=== PATIENT | female | born 1955 | race African-American/Black ===

== ENCOUNTER 2018-07-06 20:52 | Emergency (ER) | payer OTHER ==
[~2018-07-06] VITALS: Ht 162.6 cm; Wt 54.4 kg
--- NOTE | ~2018-07-06 | EKG ---
[place] [address] [email or web address] [place] [address] ELECTROCARDIOGRAM REPORT Name: ANA JENNINGS [id number] Admission: 07/06/18 Attend Phys: Discharge: 07/07/18 Date of : 53 Report #: [id number] THIS REPORT FOR: //name// [facility] ED Test Date: 2018-07-06 Test Time: 21:02:27 Pat Name: ANA JENNINGS Department: Room: Gender: F Tool Design Checker: juan : 1955 Requested By: Era Price Order Number: [id number] MD: London Correa Measurements Intervals [place] Rate: 86 P: 58 SD: 141 QRS: 44 QRSD: 89 T: 55 QT: 376 QTc: 450 Interpretive Statements Sinus rhythm Abnormal R-wave progression, early transition Baseline wander in lead(s) V6 No previous ECG available for comparison Electronically Signed On 07-07-2018 8:46:33 WRAPPING MACHINE TENDER by London Correa [email or web address] <ELECTRONICALLY SIGNED> By: London Correa MD, [facility] 07/07/18 0846 01 01 London Correa MD, FACC /EPI
[2018-07-06 21:38] LABS: HEMATOCRIT 44.1 % (37.0-47.0); MCH 41.3 pg (26.0-34.0); MCV 121.5 fL (80.0-100.0); RBC 3.63 mil/uL (4.20-5.00)
[2018-07-06 21:48] LABS: ANION GAP 6 mmol/L (7-16); BUN 20 mg/dL (7-18); CALCIUM 9.8 mg/dL (8.5-10.1); CHLORIDE 104 mmol/L (98-107); CO2 27 mmol/L (21-32); CREATININE 1.2 mg/dL (0.6-1.0); GLUCOSE 111 mg/dL (74-106); POTASSIUM 4.5 mmol/L (3.5-5.1); SODIUM 137 mmol/L (136-145)
[2018-07-06 21:53] LABS: URINE BILIRUBIN NEGATIVE (Negative); URINE BLOOD NEGATIVE (Negative); URINE CLARITY CLEAR; URINE COLOR YELLOW; URINE GLUCOSE-RANDOM* NEGATIVE (Negative); URINE KETONES NEGATIVE (Negative); URINE LEUKOCYTES-REFLEX NEGATIVE (Negative); URINE NITRITE-REFLEX NEGATIVE (Negative); URINE PROTEIN (DIPSTICK) NEGATIVE (Negative); URINE UROBILINOGEN 0.2 E.U./dl (0.2-1.0)
[2018-07-06 21:57] LABS: ALBUMIN 3.7 g/dL (3.4-5.0); LIPASE 172 U/L (73-393); SGOT 22 U/L (15-37); SGPT 22 U/L (30-65); TOTAL BILIRUBIN 0.2 mg/dL (<0.1-1.0); TOTAL PROTEIN 8.8 g/dL (6.4-8.2); TROPONIN-I <0.06 ng/mL (<0.06)
[2018-07-07 01:41] VITALS: BP 124/58
== END 2018-07-07 01:41 | disposition home or self-care (01) ==
LOC: ER 20:52
PROVIDERS: Student in an Organized Health Care Education/Training Program
DX: R07.89 Other chest pain (principal); F03.90 Unspecified dementia, unspecified severity, without behavioral disturbance, psychotic disturbance, mood disturbance, and anxiety; F17.210 Nicotine dependence, cigarettes, uncomplicated

== ENCOUNTER 2019-09-20 22:08 | Inpatient (IN) | payer OTHER ==
[~2019-09-20] VITALS: Ht 165.1 cm; Wt 74.4 kg
--- NOTE | ~2019-09-20 | EKG ---
[facility] [place] [address] [address] ELECTROCARDIOGRAM REPORT Name: ANA JENNINGS Room #: [facility]#: [id number] Admission: 09/20/19 Attend Phys: Discharge: Date of : 53 Report #: [id number] THIS REPORT FOR: cc: Lexie Lawson,Holly Solitario MD ~ THIS REPORT FOR: //name// [facility] ED Test Date: 2019-09-20 Test Time: 23:05:11 Pat Name: ANA JENNINGS Department: Room: Gender: F Minor League Baseball Player: GEORGES : 1955 Requested By: Bita Davila Order Number: [id number] MD: Measurements Intervals [place] Rate: 77 P: 52 NJ: 151 QRS: 29 QRSD: 62 T: 73 QT: 495 QTc: 561 Interpretive Statements Sinus rhythm Abnormal R-wave progression, early transition Borderline T abnormalities, anterior leads Prolonged QT interval Compared to ECG 07/06/2018 21:02:27 T-wave abnormality now present Prolonged QT interval now present [email or web address] By: [id number] Epiphany Epiphany, /EPI
[2019-09-20 22:57] VITALS: BP 122/104
[2019-09-20 23:01] LABS: ANION GAP 9 mmol/L (7-16); BUN 14 mg/dL (7-18); CALCIUM 8.9 mg/dL (8.5-10.1); CHLORIDE 104 mmol/L (98-107); CO2 28 mmol/L (21-32); CREATININE 1.3 mg/dL (0.6-1.0); GLUCOSE 124 mg/dL (74-106); POTASSIUM 3.7 mmol/L (3.5-5.1); SODIUM 141 mmol/L (136-145)
[2019-09-20 23:10] LABS: DIRECT BILIRUBIN < 0.1 mg/dL (<0.1-0.2); SGOT 21 U/L (15-37); SGPT 17 U/L (30-65); TOTAL BILIRUBIN 0.2 mg/dL (<0.1-1.0); TOTAL PROTEIN 8.5 g/dL (6.4-8.2); TROPONIN-I <0.06 ng/mL (<0.06)
[2019-09-21 00:24] LABS: ABSOLUTE NEUTROPHILS 7.1 thou/uL (1.4-8.2); BASOPHILS 0.6 % (0.0-2.0); EOSINOPHILS 3.1 % (0.0-3.0); HEMATOCRIT 34.4 % (37.0-47.0); HEMOGLOBIN 10.8 gm/dL (12.0-15.0); LYMPHOCYTES 18.3 % (24.0-44.0); MCH 28.1 pg (26.0-34.0); MCHC 31.5 g/dL (28.0-37.0); MCV 89.1 fL (80.0-100.0); MONOCYTES 11.8 % (1.0-8.0); PLATELET COUNT 327 thou/uL (150-400); POLYS 66.2 % (36.0-66.0); RBC 3.86 mil/uL (4.20-5.00); RDW 20.6 % (10.5-14.5); WBC 10.7 thou/uL (4.0-11.0)
[2019-09-21] MEDS ORDERED: NON-ASPIRIN PA325 MG PO (01:28)
[2019-09-21] MEDS ORDERED: FOSAMAX 70 MG T70 MG PO (01:29)
[2019-09-21] MEDS ORDERED: NORVASC 2.5 MG2.5 M1 PO (01:29)
[2019-09-21] MEDS ORDERED: LAC-HYDRIN FIV226 GM TOP (01:30)
[2019-09-21] MEDS ORDERED: DOCUSATE SODIU100 MG PO (01:31)
[2019-09-21] MEDS ORDERED: NEXIUM 40 MG CA40 M1 PO (01:32)
[2019-09-21 01:33] VITALS: BP 106/51
[2019-09-21] MEDS ORDERED: FAMOTIDINE 20 M20 MG (01:42)
[2019-09-21 02:16] VITALS: BP 109/56
--- NOTE | 2019-09-21 03:19 | NUR ---
ADMISSION ASSESSMENT COMPLETED.SISTER ASSISTED A LITTLE BIT BEFORE LEAVING. PT IS ALERT TO SELF. THINKS SHE IS IN [place]. SHE REMEMBERS ITS SEPTEMBER WITH A FEW CUES.PT IS ON /NC TO KEEP SATS ABOVE 92%. PT HAS A CONGESTED COUGH. NO SPUTUM NOTED.AFEBRILE. FALL PREC IN PLACE.ORIENTED TO SATFF AND USE OF CALL LIGHT.
[2019-09-21 09:15] VITALS: BP 110/65
--- NOTE | 2019-09-21 11:35 | 2DMMODE ---
[facility] [place] [address] 2 D/M-MODE ECHOCARDIOGRAM Name: ANA JENNINGS Room #: 441-P ADM IN M.R.#: [id number] Admission: 09/21/19 Attend Phys: Jaiden Sauceda MD Discharge: Date of : 53 Report #: [id number] THIS REPORT FOR: cc: Lexie Lawson,Lexie Del [place],Ruben Ibarra MD ~ THIS REPORT FOR: //name// APPROVED REPORT Study performed: 09/21/2019 09:42:07 EXAM: Comprehensive 2D, Doppler, and color-flow Echocardiogram Patient Location: Bedside Room #: 441 Status: routine BSA: 1.98 HR: 73 bpm BP: 109/56 mmHg Rhythm: NSR Other Information Study Quality: Adequate Indications Dyspnea 2D Dimensions IVC: 16.00 mm Volumes Left Atrial Volume (Systole) Single Plane 4CH: 32.73 mL Single Plane 2CH: 44.38 mL LA ESV Index: 21.00 mL/m2 Aortic Valve AoV Peak Jareth.: 1.38 m/s AO Peak Gr.: 7.57 mmHg LVOT Max P.13 mmHg LVOT Max V: 1.13 m/s Mitral Valve E/A Ratio: 1.1 MV Decel. Time: 249.41 ms MV E Max Jareth.: 0.87 m/s [facility] [address] [address] 2 D/M-MODE ECHOCARDIOGRAM Name: ANA JENNINGS Room #: 441-P ADM IN M.R.#: [id number] Admission: 09/21/19 Attend Phys: Jaiden Sauceda MD Discharge: Date of : 53 Report #: [id number] MV A Jareth.: 0.79 m/s MV PHT: 72.33 ms IVRT: 106.11 ms Pulmonary Valve PV Peak Jareth.: 1.15 m/s PV Peak Gr.: 5.30 mmHg Pulmonary Vein P Vein S: 0.47 m/s P Vein A: 0.23 m/s P Vein D: 0.31 m/s P Vein A Dur.: 96.9 msec P Vein S/D Ratio: 1.52 Tricuspid Valve TR Peak Jareth.: 2.68 m/s TR Peak Gr.: 28.83 mmHg PA Pressure: 34.00 mmHg Left Ventricle The left ventricle is normal size. There is normal LV segmental wall motion. There is normal left ventricular wall thickness. The left ventricular systolic function is normal. The left ventricular ejection fraction is within the normal range. LVEF is 60-65%. The left ventricular diastolic function is normal. Right Ventricle The right ventricle is normal size. The right ventricular systolic function is normal. Atria The left atrium size is normal. The right atrium size is normal. Aortic Valve The aortic valve is normal in structure. No aortic regurgitation is present. There is no aortic valvular stenosis. Mitral Valve The mitral valve is normal in structure. There is no mitral valve regurgitation noted. No evidence of mitral valve stenosis. Tricuspid Valve The tricuspid valve is normal in structure. There is mild tricuspid regurgitation. Estimated PAP 34 mmHg. There is mild pulmonary hypertension. Pulmonic Valve [facility] [address] [place] [address] 2 D/M-MODE ECHOCARDIOGRAM Name: ANA JENNINGS Room #: 441-P ADM IN M.R.#: [id number] Admission: 09/21/19 Attend Phys: Jaiden Sauceda MD Discharge: Date of : 53 Report #: [id number] The pulmonary valve is normal in structure. There is no pulmonic valvular regurgitation. Great Vessels The aortic root is normal in size. IVC is normal in size and collapses >50% with inspiration. Pericardium There is no pericardial effusion. <Conclusion> The left ventricle is normal size. LVEF is 60-65%. The aortic valve is normal in structure. The mitral valve is normal in structure. The tricuspid valve is normal in structure. There is mild tricuspid regurgitation. Estimated PAP 34 mmHg. There is mild pulmonary hypertension. The pulmonary valve is normal in structure. There is no pericardial effusion. <ELECTRONICALLY SIGNED> By: Ruben Fernandez MD 09/21/19 1134 1134 1134 Ruben Fernandez MD /INF
[2019-09-21 16:12] VITALS: BP 142/72
[2019-09-21 16:50] LABS: BE(vivo) 0.3 mmol/L (-2 to +3); HCO3 25.4 mmol/L (22.0-26.0); PCO2 43.2 mmHg (35.0-45.0); PO2 65.9 mmHg (80.0-100.0); pH 7.388 (7.360-7.450); sO2 92.8 % (92.0-98.0)
[2019-09-21 19:00] VITALS: BP 139/70
--- NOTE | 2019-09-21 20:13 | NUR ---
PT RECEIVED CT SCAN THIS SHIFT, REMAIN INCONTINENT OF URINE, UNABLE TO GET URINE SAMPLE THIS SHIFT, PASSED INFORMATION TO NIGHT NURSE IN REPORT. PT HAS NOT HAD BOWEL MOVEMENT TO COLLECT SPECIMEN, SPEEDBOAT DRIVER NURSE AWARE OF NEED FOR SAMPLE. PT NOT IMPULSIVE, ASSISTING WITH TURNING. FALL PRECAUTIONS IN PLACE. REMAINS ON ROOM AIR, NO SIGNS OF RESP DISTRESS NOTED, PT DENIES ANY FEELINGS OF DISTRESS.
[2019-09-22 03:10] VITALS: BP 116/64
[2019-09-22 06:13] LABS: BASOPHILS 0.2 % (0.0-2.0); HEMATOCRIT 32.7 % (37.0-47.0); HEMOGLOBIN 10.3 gm/dL (12.0-15.0); MCH 28.3 pg (26.0-34.0); MCHC 31.5 g/dL (28.0-37.0); MCV 89.9 fL (80.0-100.0); MONOCYTES 2.5 % (1.0-8.0); PLATELET COUNT 334 thou/uL (150-400); POLYS 86.3 % (36.0-66.0); RBC 3.63 mil/uL (4.20-5.00); RDW 20.1 % (10.5-14.5); WBC 10.4 thou/uL (4.0-11.0)
--- NOTE | 2019-09-22 06:46 | NUR ---
PT ALERT AND ORIENTED TO PERSON AND TIME, REDIRECTED PT IN REGARDS TO PLACE, FORGETFUL IN REGARDS TO SITUATION. PT DENIES PAIN AND SOB. PT ABLE TO ASSIST WITH TURNS. ENCOURAGED FREQUENT REPOSITIONING, PT REFUSED AFTER X1 POSITION CHANGES. PT NOTED TO HAVE LABILE MOOD. PT TOLERATING PO INTAKE WITHOUT ISSUE. ENCOURAGED PT TO NOTIFY STAFF FOR ALL NEEDS. CALL LIGHT WITHIN REACH, BED ALARM ON, BED IN LOWEST POSITION. WILL CONTINUE TO MONITOR.
[2019-09-22 07:20] LABS: CALCIUM 9.1 mg/dL (8.5-10.1); CREATININE 0.9 mg/dL (0.6-1.0); POTASSIUM 3.6 mmol/L (3.5-5.1)
[2019-09-22 08:08] VITALS: BP 102/55
[2019-09-22 16:47] VITALS: BP 120/75
--- NOTE | 2019-09-22 17:49 | NUR ---
ASSUMED CARE OF THE PT AT 0700. PT IS ALERT AND AWAKE. PT ON 2.0 O2 AND REFUSES TO KEEP IN NASAL CANNULA. PT PULLED OUT IV FROM R FOREARM. FLU SWABS SENT TO LAB. PT IS VERY CONFUSED TO WHERE SHE IS. LUNGS ARE COARSE. PULSES ARE STRONG. BED IN LOWEST POSITION, CALL LIGHT IS WITHIN REACH AND FALL PRECAUTIONS ARE IN PLACE. WILL CONTINUE TO MONITOR THE PT.
[2019-09-22 19:18] VITALS: BP 124/59
[2019-09-23 03:47] VITALS: BP 127/69
--- NOTE | 2019-09-23 04:27 | NUR ---
1900 ASSUMED CARE OF PT AFTER BEDSIDE REPORT FROM MICHELLE 1999 ASSESSMENT COMPLETED SEE ASSESSMENT. PT RESP UNLABORED, O2 SATS 94-95% ON ROOM AIR, PT WILL NOT LEAVE NC ON. IV STARTED TO GIVE ABX AFTER CONSENT FROM PT, AFTER ABX, PT DC'D IV ON HER OWN, CATHETER INTACT AND BLEEDING STOPPED. FALL PRECAUTIONS IN PLACE. PT IS COOPERATIVE AND PLEASANT. PT WITH NO COMPLAINTS OF PAIN OR DISCOMFORT.
[2019-09-23 05:58] VITALS: BP 144/66
[2019-09-23 06:15] LABS: HEMATOCRIT 34.2 % (37.0-47.0); HEMOGLOBIN 10.6 gm/dL (12.0-15.0); MCH 27.6 pg (26.0-34.0); MCHC 31.1 g/dL (28.0-37.0); MCV 88.7 fL (80.0-100.0); RBC 3.85 mil/uL (4.20-5.00); RDW 20.5 % (10.5-14.5)
[2019-09-23 06:43] LABS: CALCIUM 9.2 mg/dL (8.5-10.1); CREATININE 0.9 mg/dL (0.6-1.0); POTASSIUM 3.7 mmol/L (3.5-5.1)
[2019-09-23 07:25] VITALS: BP 138/66
--- NOTE | 2019-09-23 09:08 | NUR ---
PT ADMITTED 09/21/19 LATE ENTRY: PT ADMITTED RELATED TO HYPOXIA. CM REVIEWED CHART AND SPOKE WITH CARE TEAM. CM ATTEMPTED TO MEET WITH PT AT BEDSIDE DAY OF ADMIT BUT PT WAS SLEEPING AND DIDN'T ROUSE. CM CALLED PT'S SISTER SHE INDICATED THAT PT RESIDES AT [facility]. SHE INDICATED THAT PT USED A WC AND FWW TO ASSIST WITH MOBILITY CANDY DEPOSITING MACHINE OPERATOR. SISTER INDICATED THAT PT COULD ASSIST WITH TRANSFERS CANDY DEPOSITING MACHINE OPERATOR. SHE INDICATED THAT THEY ANTICPATE PT RETURNING TO [facility] MEDICALLY ST[facility]. CLINICAL UPDATE SENT TO [facility]. CM TO FOLLOW INDICATED WITH DC PLANNING.
--- NOTE | 2019-09-23 12:38 | NUR ---
ASSUMED CARE OF THE PT AT 0700. PT PULLED OUT IV YESTERDAY AND EARLY IN THE AM WITH NOC NURSE. ANOTHER IV INSERTED BY NOC NURSE IN R FOREARM, DRY AND INTACT WITH PROTECTIVE WRAP APPLIED. NEG FOR FLU. PT UP IN BED WITH BED ALARM ON, ALERT AND AWAKE. NO C/O OF PAIN. LUNGS ARE COARSE, PER NOTES PT HAS HX OF PULMONARY EDEMA, WITH LOOSE COUGH. NO BM FOR OCCULT BLOOD CULTURE. PER NOTES OK TO MINIMIZE SLEEP INTERRUPTIONS BETWEEN HOURS OF 10PM AND 6AM IF VS ARE NORMAL. FALL PRECAUTIONS IN PLACE AND BED IN LOWEST POSITION. PT REFUSED SCD'S. WILL CONTINUE TO MONITOR THE PT.
[2019-09-23] MEDS ORDERED: ZITHROMAX TRI-500 MG PO (14:04)
[2019-09-23] MEDS ORDERED: MEDROL DOSPAK21 TA1 PO (14:04)
--- NOTE | 2019-09-23 15:56 | NUR ---
DISCHARGE ORDERS COMPLETED. PATIENT DISCHARGING BACK TO [facility]. PATIENT CLINICALS, DISCHARGE ORDERS, DISCHARGE SUMMARY, FACESHEET AND RADIOLOGY REPORTS FAXED TO [facility], [facility] VERIFIED RECEIVED. [facility] TO ARRANGE PATIENT WHEELCHAIR TRANSPORTATION BACK [place] [facility]. CHART COPY COMPLETED PER WATER RESOURCE AGENT. UNIT SW TO NOTIFY FAMILY. CONTACT NUMBER FOR REPORT PROVIDED. [facility] CON[facility] NUM[facility] [phone].
[2019-09-23 16:53] VITALS: BP 121/58
--- NOTE | 2019-09-23 17:00 | NUR ---
CARE TEAM INDICATED THAT PT IS MEDICALLY STABLE TO DC BACK TO [facility] THIS DAY. CHART COPY ORDERED. WHEELCHAIR VAN TRANSPORT TO BE ARRANGED. ORDERS HAVE BEEN FAXED. NURSE GIVEN NUMBER FOR REPORT. PT AND SISTER ARE AWARE. NO OTHER CM INTERVENTION INDICATED. CASE CLOSED.
== END 2019-09-23 18:08 | DRG 189 ==
LOC: ER 22:08 → EROBS 09-21 00:58 → 4S 09-21 00:58
PROVIDERS: Emergency Medicine; Internal Medicine; Nurse Practitioner; ADMIT Internal Medicine
DX: J96.21 Acute and chronic respiratory failure with hypoxia (principal); N17.9 Acute kidney failure, unspecified; E46 Unspecified protein-calorie malnutrition; J44.1 Chronic obstructive pulmonary disease with (acute) exacerbation; I50.9 Heart failure, unspecified; F03.90 Unspecified dementia, unspecified severity, without behavioral disturbance, psychotic disturbance, mood disturbance, and anxiety; G31.2 Degeneration of nervous system due to alcohol; R27.0 Ataxia, unspecified; D64.9 Anemia, unspecified; R32 Unspecified urinary incontinence; J40 Bronchitis, not specified as acute or chronic; Z68.27 Body mass index [BMI] 27.0-27.9, adult; Z87.891 Personal history of nicotine dependence; Z71.6 Tobacco abuse counseling
CPT/HCPCS: 10100

== ENCOUNTER 2020-03-10 08:53 | Emergency (ER) | payer OTHER ==
[~2020-03-10] VITALS: Ht 172.7 cm; Wt 68.0 kg
[~2020-03-10 08:53] MED LIST: DOCUSATE SODIU100 MG PO; FAMOTIDINE 20 M20 MG; FOSAMAX 70 MG T70 MG PO; LAC-HYDRIN FIV226 GM TOP; MEDROL DOSPAK21 TA1 PO; NEXIUM 40 MG CA40 M1 PO; NON-ASPIRIN PA325 MG PO; NORVASC 2.5 MG2.5 M1 PO; ZITHROMAX TRI-500 MG PO
[2020-03-10 11:03] LABS: ABSOLUTE NEUTROPHILS 4.6 thou/uL (1.4-8.2); BASOPHILS 0.6 % (0.0-2.0); HEMATOCRIT 38.3 % (37.0-47.0); HEMOGLOBIN 11.9 gm/dL (12.0-15.0); LYMPHOCYTES 31.1 % (24.0-44.0); MCH 27.4 pg (26.0-34.0); MCHC 31.2 g/dL (28.0-37.0); MCV 87.8 fL (80.0-100.0); MONOCYTES 9.2 % (1.0-8.0); PLATELET COUNT 289 thou/uL (150-400); POLYS 59.1 % (36.0-66.0); RBC 4.36 mil/uL (4.20-5.00); RDW 17.9 % (10.5-14.5); WBC 10.5 thou/uL (4.0-11.0)
[2020-03-10 11:08] LABS: CALCIUM 8.8 mg/dL (8.5-10.1); CREATININE 1.2 mg/dL (0.6-1.0); POTASSIUM 3.2 mmol/L (3.5-5.1)
[2020-03-10] MEDS ORDERED: ATIVAN0.5 M1 PO (11:32)
[2020-03-10 11:46] LABS: URINE BILIRUBIN NEGATIVE (Negative); URINE BLOOD 3+ (Negative); URINE CLARITY CLEAR; URINE COLOR YELLOW; URINE GLUCOSE-RANDOM* NEGATIVE (Negative); URINE KETONES NEGATIVE (Negative); URINE LEUKOCYTES-REFLEX NEGATIVE (Negative); URINE NITRITE-REFLEX NEGATIVE (Negative); URINE PROTEIN (DIPSTICK) 3+ (Negative); URINE SPECIFIC GRAVITY 1.025 (1.005-1.035)
[2020-03-10 11:51] LABS: BACTERIA-REFLEX None Seen /HPF (None Seen); CRYSTALS None Seen /LPF (None Seen); SQUAMOUS 4-10 Moderate /LPF (0-3); URINE RBC None Seen /HPF (0-2); URINE WBC-REFLEX None Seen /HPF (0-5)
[2020-03-10 13:12] VITALS: BP 163/85
== END 2020-03-10 13:12 ==
LOC: ER 08:53
PROVIDERS: Emergency Medicine
DX: F03.90 Unspecified dementia, unspecified severity, without behavioral disturbance, psychotic disturbance, mood disturbance, and anxiety (principal); F17.210 Nicotine dependence, cigarettes, uncomplicated; Z79.899 Other long term (current) drug therapy; Z21 Asymptomatic human immunodeficiency virus [HIV] infection status

== ENCOUNTER 2020-03-13 10:11 | Inpatient (IN) | payer OTHER ==
[~2020-03-13] VITALS: Ht 172.7 cm; Wt 73.3 kg
[~2020-03-13 10:11] MED LIST changes: +ATIVAN0.5 M1 PO
[2020-03-13 10:12] VITALS: BP 129/80
[2020-03-13 10:46] LABS: BASOPHILS 0.8 % (0.0-2.0); HEMATOCRIT 34.9 % (37.0-47.0); LYMPHOCYTES 20.4 % (24.0-44.0); MCH 26.8 pg (26.0-34.0); MCHC 31.4 g/dL (28.0-37.0); MCV 85.3 fL (80.0-100.0); MONOCYTES 8.6 % (1.0-8.0); POLYS 70.2 % (36.0-66.0); RBC 4.09 mil/uL (4.20-5.00); RDW 17.9 % (10.5-14.5); WBC 5.7 thou/uL (4.0-11.0)
[2020-03-13 10:46] LABS: URINE BILIRUBIN NEGATIVE (Negative); URINE BLOOD 2+ (Negative); URINE CLARITY CLOUDY; URINE COLOR YELLOW; URINE GLUCOSE-RANDOM* NEGATIVE (Negative); URINE KETONES NEGATIVE (Negative); URINE LEUKOCYTES-REFLEX NEGATIVE (Negative); URINE NITRITE-REFLEX NEGATIVE (Negative); URINE PROTEIN (DIPSTICK) 3+ (Negative); URINE SPECIFIC GRAVITY >= 1.030 (1.005-1.035)
[2020-03-13 10:48] LABS: CREATININE 1.6 mg/dL (0.6-1.0); PLATELET COUNT 396 thou/uL (150-400); POTASSIUM 3.6 mmol/L (3.5-5.1)
[2020-03-13 10:54] LABS: ALBUMIN 2.4 g/dL (3.4-5.0); TOTAL BILIRUBIN 0.4 mg/dL (0.2-1.0); TOTAL PROTEIN 8.7 g/dL (6.4-8.2)
[2020-03-13 11:01] LABS: CASTS None Seen /LPF (None Seen); SQUAMOUS >10 Many /LPF (0-3)
[2020-03-13 11:03] LABS: AMORPHOUS URATES Few /LPF (None Seen); URINE RBC 0-2 Rare /HPF (0-2); URINE WBC-REFLEX 0-5 Rare /HPF (0-5)
[2020-03-13 13:23] VITALS: BP 138/74
[2020-03-13 13:27] VITALS: BP 138/88
--- NOTE | 2020-03-13 13:56 | NUR ---
SPOKE TO NIRALI (DAUGHTER) AND PROVIDED AN UPDATE
[2020-03-13 14:50] VITALS: BP 132/80
[2020-03-13] MEDS ORDERED: DIFLUCAN150 M1 PO (15:09)
[2020-03-13] MEDS ORDERED: NEXIUM 40 MG CA40 M1 PO (15:10)
[2020-03-13] MEDS ORDERED: DULCOLAX STOOL100 M1 PO (15:10)
[2020-03-13] MEDS ORDERED: FAMOTIDINE 10 M10 MG PO (15:11)
[2020-03-13] MEDS ORDERED: ACIDOPHILUS PR0.5 MG PO (15:13)
--- NOTE | 2020-03-13 17:02 | NUR ---
PATIENT ADMIT TO UNIT AT 1430. ALERT TO SELF. EXPRESSIVE APHSIA. COVID POSITIVE. UPDATED HOME MEDS. INCONTINUE URINE. LEFT ARM WEAK. PATIENT FOLLOW SIMPLE COMMAND. WILL KEEP MONITOR.
[2020-03-13 19:31] VITALS: BP 130/74
--- NOTE | 2020-03-14 00:06 | NUR ---
UPON INITIAL ASSESSMENT, PT WAS ON IN BED WATCHING THE TV WHEN RN ENTERED THE ROOM, WHEN QUESTIONS WERE ASKED PT WAS ABLE TO RESPOND BACK IN CONFUSED/DISORIENTED WORDS. THOUGH RN COULD NOTICE BY THE PT'S FACIAL EXPRESSIONS WHAT SHE WAS INTENDING TO SAY. PT WAS TURNED AND HAS BEEN ON A STRICT Q2H TURNS, ORAL CARE WAS PROVIDED BY THE RN USING A SWAB AND MOUTHWASH, PT'S FACE WAS CLEANED BY THE RN WELL. PT HAD PAIN AT THE IV SITE THOUGH WHEN RN PUSHED FLUIDS SLOWLY, PT WAS ABLE TO TOLERATE IT MUCH BETTER. NO OTHER ISSUES AT THIS TIME. REMDESEVIR WAS ORDERED FOR THE PT, WHEN RN SPOKE WITH THE DPOA, THE DPOA REQUESTED THAT SHE SPEAKS WITH THE PRESCRIBING DOCTOR REGARDING WHY PT NEEDS THE TREATMENT AT THIS TIME. THIS HAS BEEN COMMUNICATED TO AND IT WAS TOLD THAT WILL COMMUNICATE WITH THE DPOA THE MORNING OF 03/14/20,
[2020-03-14 00:27] VITALS: BP 134/80
[2020-03-14 04:10] VITALS: BP 129/74
[2020-03-14 06:31] LABS: ABSOLUTE NEUTROPHILS 4.5 thou/uL (1.4-8.2); BASOPHILS 0.3 % (0.0-2.0); HEMATOCRIT 31.5 % (37.0-47.0); HEMOGLOBIN 9.8 gm/dL (12.0-15.0); LYMPHOCYTES 10.6 % (24.0-44.0); MCH 27.1 pg (26.0-34.0); MCHC 31.2 g/dL (28.0-37.0); MONOCYTES 2.8 % (1.0-8.0); PLATELET COUNT 400 thou/uL (150-400); POLYS 86.3 % (36.0-66.0); RBC 3.62 mil/uL (4.20-5.00); RDW 17.7 % (10.5-14.5); WBC 5.2 thou/uL (4.0-11.0)
[2020-03-14 07:00] LABS: CREATININE 1.1 mg/dL (0.6-1.0); POTASSIUM 3.6 mmol/L (3.5-5.1); TOTAL BILIRUBIN 0.4 mg/dL (0.2-1.0); TOTAL PROTEIN 7.7 g/dL (6.4-8.2)
[2020-03-14 08:02] LABS: PROTIME 9.7 Seconds (9.3-11.4)
[2020-03-14 08:09] VITALS: BP 128/73
[2020-03-14 11:48] VITALS: BP 147/79
--- NOTE | 2020-03-14 13:49 | EKG ---
[facility] [place] [address] [place] [address] ELECTROCARDIOGRAM REPORT Name: ANA JENNINGS Room #: 358- ADM IN M.R.#: [id number] Admission: 03/13/20 Attend Phys: Jaiden Sauceda MD Discharge: Date of : 53 Report #: [id number] THIS REPORT FOR: cc: Lexie Lawson,Lexie Shea,Teo Blackmon MD ~ THIS REPORT FOR: //name// [facility] ED Test Date: 2020-03-13 Test Time: 10:22:07 Pat Name: AAN JENNINGS Department: Room: [facility] Gender: F Talent Associate: [facility] : 1955 Requested By: Jaiden Sauceda Order Number: [id number] MD: Teo Cid Measurements Intervals [place] Rate: 104 P: 64 ME: 128 QRS: 44 QRSD: 78 T: 134 QT: 334 QTc: 440 Interpretive Statements Sinus tachycardia Probable left atrial enlargement Abnormal R-wave progression, early transition Borderline repolarization abnormality Compared to ECG 09/20/2019 23:05:11 Electronically Signed On 03-14-2020 13:48:55 CDT by Teo Cid [email or web address] <ELECTRONICALLY SIGNED> By: Teo Cid MD 03/14/20 1348 1022 1022 Teo Cid MD /EPI
--- NOTE | 2020-03-14 15:02 | NUR ---
INITIAL ASSESSMENT: Received consult. DAYNA reviewed chart and spoke with nursing and attending physician. Pt was admitted from [facility] due AMS/dehydration. Per chart, pt was noted to have left sided weakness. Pt placed in Enhanced Isolation due to COVID-19. Pt had tested positive at her facility. Test at [facility] was positive. Pt has been febrile and is on O2. Pt is on IV abx. Pt to be started on Remdesivir. DAYNA spoke with pt's sister, Bell, via phone. Introduced role of DAYNA. Pt has been at [facility] for about two years. Pt is normally w/c bound. Pt has been on O2 at the facility. Pt's sister states that pt was tested at [facility] three times and was negative. Plan is for pt to return to [facility] when medically stable. DAYNA faxed clinical info/COVID test results to [facility] for review. DAYNA updated [facility] clinical pharmacy coordinator, Jasmyn. DAYNA is following to assist as needed with discharge planning.
[2020-03-14 15:58] VITALS: BP 142/78
--- NOTE | 2020-03-14 17:04 | NUR ---
ASSUMED CARE OF PT AT 0700. PT PLEASANTLY CONFUSED POLITE AND COOPERATIVE. IN NO ACUTE DISTRESS. REQUIRING SUPPLEMENTAL O2 TO MAINTAIN SPO2. NOTED WEAKNESS TO LEFT SIDE. IV ABX INFUSING PER ORDER. INCONTINENT OR URINE AND STOOL. SISTER AND DPOA REQUESTING TO TALK TO PHYSICIAN BEFORE INITIATING REMDESIVIR - RELAYED MESSAGE TO PHYSICIANS. TURNED Q2H AND PRN. PT VOICING NO CONCERNS AT THIS TIME.
[2020-03-14 20:50] VITALS: BP 112/64
--- NOTE | 2020-03-15 03:47 | NUR ---
ASSUMED PT CARE AT 1900. PT IS ORIENTED TO SELF, OTHERWISE CONFUSED. FREQ C/O WANTING TO GO HOME. NO REPORTS OF PAIN. DR CALDWELL SPOKE WITH FAMILY, GIVEN THE GO ON THE REMDESIVIR, FIRST DOSE GIVEN TONIGHT. PT HAD COMPLAINED OF PAIN NEAR HER BOTTOM, AFTER SOME REPOSITIONING PT WAS ABLE TO HAVE A BM AND REPORTED FEELING MUCH BETTER. FEMALE CATHETER IN PLACE- GOOD OUTPUT. FLUIDS INFUSING PER ORDER. PT CURRENTLY RESTING IN BED WITH EYES CLOSED, WILL CONTINUE TO MONITOR.
[2020-03-15 05:07] VITALS: BP 127/71
[2020-03-15 07:48] VITALS: BP 116/76
[2020-03-15 11:19] VITALS: BP 112/67
--- NOTE | 2020-03-15 14:02 | NUR ---
SW reviewed chart and spoke with nursing and attending physician. Pt in Enhanced Isolation due to COVID-19. Pt to start course of Remdesivir. Pt is afebrile, requiring 2L of O2. On IV abx. SW provided update to Jasmyn at [facility]. SW is following to assist as needed with discharge planning.
--- NOTE | 2020-03-15 15:20 | NUR ---
ASSUM,ED CARE OF PT AT 0700. PT PLEASANTLY CONFUSED. INCONTINENT. INADVERTENTLY PULLED OUT IV. IV ABX INFUSING PER ORDER. SPOKE WITH SISTER/DPOA ABOUT POC. NO OTHER CONCERNS TO REPORT AT THIS TIME. KATHIE.
[2020-03-15 15:33] VITALS: BP 115/70
[2020-03-15 21:00] VITALS: BP 106/69
[2020-03-15 21:02] LABS: ALBUMIN 1.9 g/dL (3.4-5.0); ANION GAP 8 mmol/L (7-16); BUN 28 mg/dL (7-18); CALCIUM 9.5 mg/dL (8.5-10.1); CHLORIDE 118 mmol/L (98-107); CO2 29 mmol/L (21-32); CREATININE 1.1 mg/dL (0.6-1.0); DIRECT BILIRUBIN < 0.1 mg/dL (<0.1-0.2); GLUCOSE 112 mg/dL (74-106); POTASSIUM 3.5 mmol/L (3.5-5.1); SGOT 41 U/L (15-37); SGPT 27 U/L (30-65); SODIUM 155 mmol/L (136-145); TOTAL BILIRUBIN 0.3 mg/dL (0.2-1.0); TOTAL PROTEIN 7.1 g/dL (6.4-8.2)
[2020-03-16 03:17] VITALS: BP 139/67
--- NOTE | 2020-03-16 03:33 | NUR ---
ASSUMED PT CARE AT 1900. P IS ORIENTED TO SELF AND PLEASANTLY CONFUSED. NEEDED TO BUMP HER UP TO 5L IN ORDER TO MAINTAIN O2 SAT OF 92%. INSTRUCTED PT TO TAKE DEEP BREATHS, AND SHE JUMPS UP TO 96%. PURRWICK IN PLACE WITH GOOD OUTPUT. PT HOLLERING OUT ALL NIGHT, BUT SAYS SHE DOESNT NEED ANYTHING WHEN STAFF ASKS HER WHATS WRONG. UPDATED THE FAMILY TONIGHT. PTS IV WENT BAD, MULTIPLE ATTEMPTS MADE BY STAFF WITH NO SUCCESS. WILL PAGE IV TEAM IN AM. PT CURRENTLY RESTING IN BED, DID NOT SLEEP MUCH TONIGHT. WILL CONTINUE TO MONITOR.
[2020-03-16 08:16] VITALS: BP 140/78
--- NOTE | 2020-03-16 15:02 | NUR ---
DAYNA reviewed chart and spoke with nursing and attending physician. Pt in Enhanced Isolation due to COVID-19. Pt is completing course of Remdesivir. Pt is afebrile and on IV abx. Pt is requiring 5L of O2. DAYNA provided updated to Jasmyn at [facility]. No weekend discharge planned. DAYNA to fax clinical updates to [facility] on Thursday for review. DAYNA is following to assist as needed with discharge planning.
--- NOTE | 2020-03-16 17:51 | NUR ---
ASSUMMED PT CARE AT APPROXIMATELY 0700. PT AWAKE AND ORIENTED TO SELF. FREQUENT REORIENTATION PROVIDED. ASSESSMENT CHARTED. FALL PRECAUTIONS IN PLACE. PT DENIES HAVING CHEST PAIN. PT DENIES HAVING SOB. PT DENIES HAVING ACUTE PAIN. VITAL SIGNS STABLE. BLOOD SUGARS STABLE. ENCOURAGED PT TO EAT AND DRINK FLUIDS. PT RIPPED OUT IV MULTIPLE TIMES AND CONTINUOUSLY RIPPED OUT NASAL CANNULA. INFORMED DR. BAKER. MITTEN RESTRAINTS ORDERED. MITTENS IN PLACE. SEE RESTRAINT SHEET. PT COMFORTABLE. PT DENIES HAVING FURTHER CONCERNS.
[2020-03-16 20:37] VITALS: BP 116/68
[2020-03-17 03:43] VITALS: BP 141/84
--- NOTE | 2020-03-17 04:25 | NUR ---
Patient making slow progress towards outcome goals. Oxygenation optimal with 5L/NC sats 93-95%. Patient requires continues use of mittens as restraints. Manages to remove mitts, take nasal cannula off. IV on left A received infiltrated. Restarted on left forearm with difficulty. Incontinent of bladder, external female catheter working great when patient does not remove.
[2020-03-17 08:15] VITALS: BP 122/74
[2020-03-17 11:45] VITALS: BP 105/64
--- NOTE | 2020-03-17 15:14 | NUR ---
ASSUMED PATIENT CARE AT 0700. ALERT TO SELF. FOLLOW SIMPLE COMMAND, MARCELINA MITTEN ON. PATIENT STILL TRY TO TAKE THEM OUT. ASSISTED PATIENT MEALS. GIVEN REPORT TO COMING RN MARY LOU AT 1400.
[2020-03-17 16:03] VITALS: BP 110/86
[2020-03-17 18:10] LABS: HEMATOCRIT 36.8 % (37.0-47.0); HEMOGLOBIN 11.1 gm/dL (12.0-15.0); MCH 26.5 pg (26.0-34.0); MCHC 30.2 g/dL (28.0-37.0); MCV 87.9 fL (80.0-100.0); PLATELET COUNT 649 thou/uL (150-400); RBC 4.19 mil/uL (4.20-5.00); WBC 10.6 thou/uL (4.0-11.0)
--- NOTE | 2020-03-17 18:50 | NUR ---
ASSUMED CARE OF PATIENT AT 1400. PATIENT IS IN ISOLATION FOR COVID. PATIENT IS APHASIC AND A FEEDER. SHE IS IN SOFT WRIST RESTRAINTS WITH MITS ON HER HANDS. ORDER HAS BEEN RENEWED. Q2 HOUR CHECKS PERFORMED. PATIENT NOT SHOWING ANY SIGNS OF DISCOMFORT OR DISTRESS. PATIENT TO CONTINUE WITH POC.
[2020-03-17 18:59] LABS: ABSOLUTE NEUTROPHILS 8.3 thou/uL (1.4-8.2)
[2020-03-17 19:00] LABS: ANISOCYTOSIS 1+; PLATELET ESTIMATE INCREASED
[2020-03-17 19:01] LABS: POLYCHROMASIA SLIGHT
[2020-03-17 19:02] LABS: ALBUMIN 2.2 g/dL (3.4-5.0); CALCIUM 9.4 mg/dL (8.5-10.1); CREATININE 1.2 mg/dL (0.6-1.0); DIRECT BILIRUBIN 0.1 mg/dL (<0.1-0.2); POTASSIUM 3.6 mmol/L (3.5-5.1); TOTAL BILIRUBIN 0.2 mg/dL (0.2-1.0); TOTAL PROTEIN 7.6 g/dL (6.4-8.2)
[2020-03-17 21:03] VITALS: BP 114/76
--- NOTE | 2020-03-18 05:20 | NUR ---
VSS-AFEBRILE. ABLE TO VERBALIZE THAT SHE HAS NO REPORTABLE PAIN. MITTENS REMAIN IN PLACE. INCONTINENT OF URINE, NO BM THIS SHIFT. FALL PRECAUTIONS IN PLACE, MONITORED FREQUENTLY.
[2020-03-18 08:47] VITALS: BP 129/75
[2020-03-18 12:33] VITALS: BP 119/70
[2020-03-18 15:13] VITALS: BP 130/73
--- NOTE | 2020-03-18 17:51 | NUR ---
PT PLEASANTLY CONFUSED. ON 5L NC, BUT APPEARS IN NO RESP DISTRESS. INCONTINENT. MITTENS IN PLACE. IVF INFUSING PER ORDER. NO OTHER CHANGES TO REPORT.
[2020-03-18 19:33] VITALS: BP 136/77
--- NOTE | 2020-03-18 22:16 | NUR ---
PT RESTING IN BED WATCHING TV. PT NOT ANSWERING QUESTIONS BUT DOES YELL OUT WITH ADL CARES AND REPOSITIONING HAS EYE CONTACT WITH STAFF. IVF INTACT. PURWICK INTACT. O2 PER NC. BILATERAL MITTENS ON. SCDS AND BED ALARM ON.
[2020-03-19 04:26] VITALS: BP 113/52
--- NOTE | 2020-03-19 07:05 | NUR ---
PT AWAKE SMILING GOOD EYE CONTACT TALKING FULL SENTENCES WITH NURSE THIS AM. ASSISTING WITH REPOSITIONING.
[2020-03-19 08:59] VITALS: BP 108/71
--- NOTE | 2020-03-19 11:29 | NUR ---
MESSAGED DR. BAKER TO UPDATE RESTRAINT ORDER. PATIENT STILL CONFUSED AND ATTEMPTING TO PULL OUT NC AND IV LINES. SEE NEW ORDER PLACED. PATIENT TOLERATING RESTRAINTS. SEE ASSESSMENTS CHARTED.
--- NOTE | 2020-03-19 16:18 | NUR ---
DAYNA reviewed chart and spoke with nursing and attending physician. Pt in Enhanced Isolation due to COVID-19. Pt is progressing towards goals for discharge. Discharge back to [facility] is anticipated for tomorrow. Repeat COVID test ordered for today. DAYNA faxed clinical updates to Jasmyn for review. Anticipate pt will return using her skilled benefit. DAYNA spoke with pt's sister/DPOA, Bell, to provide update and notify of anticipated discharge plan. Bell is aware and in agreement with plan. DAYNA is following to assist as needed with discharge planning.
[2020-03-19 19:26] VITALS: BP 122/78
[2020-03-20 03:44] VITALS: BP 128/66
--- NOTE | 2020-03-20 04:45 | NUR ---
Assumed pt care at 1900. A/OX1,pleasantly confused but able to make needs known. VSS. Denied pain on assessment. Pt on mittens d/t pulling lines out. Observed attempting to pull on lines when released, skin assessed every 2 hours and patent. Repositioned every 2 hours. Female external cath in place draining yellow urine. IVF infusing via LFA w/o problems. Fall precautions in place,resting quietly w/o any distress.
[2020-03-20 08:16] VITALS: BP 109/67
--- NOTE | 2020-03-20 12:03 | NUR ---
assumed patient care this morning at approximately 0700. meds and assessments as documented. patient restraints assessed at 0830 and removed. some swelling noted to left hand/ arm area where IV infusing. iv appears to be infiltrated so it was removed and patient tolerated well. elevated arm on pillow to reduce swelling. mitten restraints left off at this time and patient tolerating well. not pulling at lines. will ctm. iv fluids moved to right forearm iv. all safety measures in place.
[2020-03-20 12:06] LABS: CD3 % 63.9 % (57.5-86.2); CD4 % 29.4 % (30.8-58.5); CD4:CD8 0.83 (0.92-3.72); CD8 % 35.3 % (12.0-35.5)
--- NOTE | 2020-03-20 14:12 | NUR ---
DAYNA reviewed chart and spoke with nursing and attending physician. Pt in Enhanced Isolation due to COVID-19. Pt's repeat test is positive. DAYNA faxed COVID test results to [facility] for review. [facility] is able to accept pt back. DAYNA contacted attending physician and SENIOR SOFTWARE SYSTEMS ENGINEER for discharge orders if pt is stable for discharge. Pt will need ambulance transportation. Chart copy requested. DAYNA left voice message for pt's sister, Bell, to provide update. Awaiting finalized discharge orders/summary at this time. DAYNA is following to assist as needed with discharge planning.
[2020-03-20] MEDS ORDERED: CEFDINIR300 MG PO (14:32)
--- NOTE | 2020-03-20 15:12 | NUR ---
patient to return to [facility] today, transport set to 1630. report called to facility to addison pizarro. updated on new meds and patient status, all questions answered. patient iv discontinued. no vehicle monitor technician in place on patient to be removed. no patient belongings at bedside to be taken with her at discharge.
[2020-03-20 15:16] VITALS: BP 102/66
[2020-03-20 16:06] LABS: HIV 1 AB Positive (Negative); HIV 2 AB Negative (Negative); HIV ANTIBODY Reactive (Non Reactive)
[2020-03-20 18:06] LABS: HBsAG-EMPLOYEE EXPOSURE Negative (Negative); HCV AB-EMPLOYEE EXPOSURE >11.0 (0.0-0.9)
[2020-03-23 01:06] LABS: HIV-1 BY PCR <40 (())
== END 2020-03-20 17:22 | DRG 177 ==
LOC: ER 10:11 → 3W 12:54 → EROBS 12:54 → 3W 14:34
PROVIDERS: Emergency Medicine; Specialist; ADMIT Internal Medicine; ATTEND Internal Medicine
PROC: XW033E5 Introduction of Remdesivir Anti-infective into Peripheral Vein, Percutaneous Approach, New Technology Group 5 (ICD-10-PCS; principal; 2020-03-14)
PROC: XW033E5 Introduction of Remdesivir Anti-infective into Peripheral Vein, Percutaneous Approach, New Technology Group 5 (ICD-10-PCS; 2020-03-15)
DX: U07.1 COVID-19 (principal); J96.01 Acute respiratory failure with hypoxia; E43 Unspecified severe protein-calorie malnutrition; J12.89 Other viral pneumonia; G93.40 Encephalopathy, unspecified; N17.9 Acute kidney failure, unspecified; E87.0 Hyperosmolality and hypernatremia; F03.90 Unspecified dementia, unspecified severity, without behavioral disturbance, psychotic disturbance, mood disturbance, and anxiety; E86.0 Dehydration; Z66 Do not resuscitate; D64.9 Anemia, unspecified; R53.81 Other malaise; Z79.899 Other long term (current) drug therapy; Z87.891 Personal history of nicotine dependence; Z68.24 Body mass index [BMI] 24.0-24.9, adult; Z21 Asymptomatic human immunodeficiency virus [HIV] infection status
CPT/HCPCS: 10879

== ENCOUNTER 2020-04-05 07:57 | Inpatient (IN) | payer OTHER ==
[~2020-04-05] VITALS: Ht 172.7 cm; Wt 53.2 kg
[~2020-04-05 07:57] MED LIST changes: +ACIDOPHILUS PR0.5 MG PO; +CEFDINIR300 MG PO; +DIFLUCAN150 M1 PO; +DULCOLAX STOOL100 M1 PO; +FAMOTIDINE 10 M10 MG PO
[2020-04-05 07:58] VITALS: BP 132/81
[2020-04-05 08:26] LABS: HCO3 25.1 mmol/L (22.0-26.0); PCO2 33.6 mmHg (35.0-45.0); pH 7.491 (7.360-7.450); sO2 95.2 % (92.0-98.0)
--- NOTE | 2020-04-05 08:43 | EKG ---
[facility] [place] [address] [place] [address] ELECTROCARDIOGRAM REPORT Name: ANA JENNINGS Room #: [facility]..#: [id number] Admission: Attend Phys: Discharge: Date of : 53 Report #: [id number] THIS REPORT FOR: cc: London Correa MD [facility] ~ THIS REPORT FOR: //name// [facility] ED Test Date: 2020-04-05 Test Time: 08:33:58 Pat Name: ANA JENNINGS Department: Room: Gender: F Grants Officer: [place] : 1955 Requested By: Rafita Nuñez Order Number: [id number] MD: London Correa Measurements Intervals [place] Rate: 112 P: 43 OK: 122 QRS: 26 QRSD: 104 T: 130 QT: 355 QTc: 485 Interpretive Statements Sinus tachycardia Abnormal R-wave progression, early transition Nonspecific T abnormalities, lateral leads Compared to ECG 03/13/2020 10:22:07 No significant change was found Electronically Signed On 04-05-2020 8:42:59 CDT by London Correa [email or web address] <ELECTRONICALLY SIGNED> By: London Correa MD, FAC 04/05/2042 2 2 London Correa MD, [facility] /EPI
[2020-04-05] MEDS ORDERED: CLARITIN10 MG PO (09:58)
[2020-04-05] MEDS ORDERED: LORAZEPAM 0.50.5 MG PO (09:59)
[2020-04-05] MEDS ORDERED: NEXIUM40 MG PO (09:59)
[2020-04-05] MEDS ORDERED: ZINC CHELATED50 MG PO (10:00)
[2020-04-05] MEDS ORDERED: VITAMIN C500 M1 PO (10:00)
[2020-04-05 10:05] LABS: ABSOLUTE NEUTROPHILS 17.2 thou/uL (1.4-8.2); BASOPHILS 0.2 % (0.0-2.0); HEMATOCRIT 29.2 % (37.0-47.0); HEMOGLOBIN 9.3 gm/dL (12.0-15.0); LYMPHOCYTES 6.1 % (24.0-44.0); MCH 27.3 pg (26.0-34.0); MCHC 31.9 g/dL (28.0-37.0); MCV 85.5 fL (80.0-100.0); MONOCYTES 2.7 % (1.0-8.0); PLATELET COUNT 370 thou/uL (150-400); RBC 3.42 mil/uL (4.20-5.00); RDW 19.1 % (10.5-14.5); WBC 18.9 thou/uL (4.0-11.0)
[2020-04-05 10:13] LABS: ANION GAP 11 mmol/L (7-16); BUN 7 mg/dL (7-18); CALCIUM 8.9 mg/dL (8.5-10.1); CHLORIDE 106 mmol/L (98-107); CO2 27 mmol/L (21-32); GLUCOSE 126 mg/dL (74-106); POTASSIUM 3.8 mmol/L (3.5-5.1); SODIUM 144 mmol/L (136-145)
[2020-04-05 10:15] LABS: INR 1.1; PROTIME 11.1 Seconds (9.3-11.4)
[2020-04-05 10:23] LABS: ALBUMIN 2.5 g/dL (3.4-5.0); DIRECT BILIRUBIN 0.1 mg/dL (<0.1-0.2); SGOT 13 U/L (15-37); SGPT 13 U/L (30-65); TOTAL BILIRUBIN 0.3 mg/dL (0.2-1.0); TOTAL PROTEIN 7.3 g/dL (6.4-8.2); TROPONIN-I <0.06 ng/mL (<0.06)
[2020-04-05 13:17] LABS: ANISOCYTOSIS 1+; POIKILOCYTOSIS SLIGHT
--- NOTE | 2020-04-05 18:38 | NUR ---
COURIER SPOKE WITH [facility] SISTER NIRALI COREASameer [phone]. UPDATE ON PT CARE AND BED ASSIGNMENT GIVEN
--- NOTE | 2020-04-06 02:03 | NUR ---
RT NOTIFIED OF NEEDED SPUTUM SAMPLE
[2020-04-06 06:07] LABS: BE(vivo) 2.1 mmol/L (-2 to +3); HCO3 25.8 mmol/L (22.0-26.0); PCO2 36.7 mmHg (35.0-45.0); PO2 80.6 mmHg (80.0-100.0); pH 7.464 (7.360-7.450); sO2 96.5 % (92.0-98.0)
[2020-04-06 06:30] VITALS: BP 137/62
[2020-04-06 06:57] VITALS: BP 137/64
--- NOTE | 2020-04-06 08:01 | EKG ---
[facility] [place] [address] ELECTROCARDIOGRAM REPORT Name: ANA JENNINGS Room #: 357- ADM IN M.R.#: [id number] Admission: 04/06/20 Attend Phys: Shante Borrero Discharge: Date of : 53 Report #: [id number] THIS REPORT FOR: cc: Lexie Lawson,Lexie Tay,London Richardson MD [facility] THIS REPORT FOR: //name// [facility] ED Test Date: 2020-04-05 Test Time: 08:42:05 Pat Name: ANA JENNINGS Department: Room: [facility] Gender: F Data Center Engineer: marcelo : 1955 Requested By: Rafita Nuñez Order Number: [id number] MD: London Correa Measurements Intervals [place] Rate: 110 P: 55 MN: 122 QRS: 32 QRSD: 85 T: 123 QT: 341 QTc: 462 Interpretive Statements Sinus tachycardia Early R wave progression Nonspecific ST and T wave abnormality Compared to ECG 04/05/2020 08:33:58 No significant change was found Electronically Signed On 04-06-2020 8:01:11 CDT by London Correa [email or web address] <ELECTRONICALLY SIGNED> By: London oCrrea MD, [facility] 04/06/20 0801 1 08 London Correa MD, [facility] /EPI
[2020-04-06] MEDS ORDERED: ALENDRONATE SOD70 MG PO (08:04)
[2020-04-06] MEDS ORDERED: ATIVAN0.5 M1 PO (08:05)
[2020-04-06] MEDS ORDERED: [UNRECOGNIZED DRUG - OTHER] (08:09)
[2020-04-06 08:31] LABS: HEMATOCRIT 29.1 % (37.0-47.0); MCH 26.6 pg (26.0-34.0); MCHC 30.8 g/dL (28.0-37.0); MCV 86.4 fL (80.0-100.0); RBC 3.37 mil/uL (4.20-5.00); WBC 16.4 thou/uL (4.0-11.0)
[2020-04-06 08:40] LABS: CREATININE 0.8 mg/dL (0.6-1.0); POTASSIUM 3.5 mmol/L (3.5-5.1)
[2020-04-06 08:46] LABS: ALBUMIN 1.9 g/dL (3.4-5.0); MAGNESIUM 1.9 mg/dL (1.8-2.4); TOTAL BILIRUBIN 0.4 mg/dL (0.2-1.0)
[2020-04-06 11:33] VITALS: BP 125/99
[2020-04-06 15:23] VITALS: BP 137/84
--- NOTE | 2020-04-06 18:03 | NUR ---
PATIENT ADMITTED TO ROOM FROM ER EARLY THIS AM. SHE IS INCONTINENT OF BOWEL AND BLADDER. UNABLE TO MAKE NEEDS KNOWN. ASKED IF SHE WAS IN PAIN AND SHE SAID NO. WILL CONT WITH PLAN OF CARE.
[2020-04-06 20:35] VITALS: BP 112/56
--- NOTE | 2020-04-07 02:07 | NUR ---
ASSUMED CARE FROM DAY SHIFT PT PULLED IV OUT CHEWED ON WEB SITE SPECIALIST WIRES AND 02 OFF AND REFUSED TO KEEP ON MONITOR OR , PT VERY RESTLESS OR AGITATED, STUDENT WORKER CALLED A SAL , ORDER RECIEVED FOR SAOFT RESTRAINTS. IV ATTEMPTED X4 UNSUCESSFUL NURSING WIND OPERATIONS MANAGER CALLED . IV PLACED IN RIGHT FOREARM. WILL CONITINUE TO MONITOR AND WILL REPORT CHANGES.
[2020-04-07 03:30] VITALS: BP 122/69
[2020-04-07 08:40] VITALS: BP 130/77
[2020-04-07 11:25] VITALS: BP 122/68
[2020-04-07 15:18] VITALS: BP 133/70
--- NOTE | 2020-04-07 19:24 | NUR ---
PATIENT IS RESTING IN ROOM AT THIS TIME. RESPIRAITONS ARE NON LABORED. CONT ON OXYGEN AT 2L. NO COMPLAIN OF PAIN. RETRAINTS OFF THIS AM. WILL CONT WITH PLAN OF Care.
[2020-04-07 19:41] VITALS: BP 125/62
--- NOTE | 2020-04-07 21:56 | NUR ---
PT CONFUSED. YELLS AT STAFF BEFORE EVEN TOUCHING HER. FOLLOWS SOME REQUEESTS. VSS. AFEBRILE. BED DOWN PARAMJIT LIGHT IN REACH. ABX INFUSING L FA. WILL CONTINUE TO MONITOR PT FOR CHANGES.
[2020-04-07 23:52] VITALS: BP 134/79
[2020-04-08 04:06] LABS: HEMATOCRIT 27.9 % (37.0-47.0); HEMOGLOBIN 8.5 gm/dL (12.0-15.0); MCH 26.3 pg (26.0-34.0); MCHC 30.5 g/dL (28.0-37.0); MCV 86.2 fL (80.0-100.0); RBC 3.24 mil/uL (4.20-5.00); RDW 18.8 % (10.5-14.5); WBC 4.5 thou/uL (4.0-11.0)
[2020-04-08 04:15] VITALS: BP 126/63
--- NOTE | 2020-04-08 04:40 | NUR ---
PT IS ALERT TO SELF. CONFUSED. YELLS AT STAFF WHEN ATTEMPTING TO DO CARE. VSS. AFEBRILE. RESPIRATIONS ARE UNLABOREDON 3LNVC. PIV INTACT R FA FOR ABX. DENIED PAIN REPOSITIONED Q 2 HRS. SCDS ON . MOISTURE BARRIER APPLIED. PUREWICK INTACT. DRAINING YELLOW ORANGE URINE. WILL CONTINUE TO MONITOR PT FOR CHANGES. SR ON MONITOR.
[2020-04-08 09:18] VITALS: BP 123/87
[2020-04-08 11:58] VITALS: BP 114/64
--- NOTE | 2020-04-08 12:50 | NUR ---
ASSUMMED CARE AT 0700, PT ALERT AND ORIENTED X1, DISORINTED TO SITUATION, TIME AND PLACE. PT DENIES ANY PAIN. PT O2 SECREASED TO 2L VIA NC. FEED PT HER LUNCH, ATE 50% OF HER FOOD. PT IS INCONTINENT AND CLEANUP WHEN NEEDED. PT CAN BE IMPULSIVE AT TIMES, BED ALARM ON AND FALL PRECAUTIONS IN PLACE. BED AT LOWEST LEVEL. WILL CONTINUE TO MONITOR.
[2020-04-08 15:25] VITALS: BP 108/66
[2020-04-08 20:22] VITALS: BP 146/76
[2020-04-09 01:13] VITALS: BP 117/77
--- NOTE | 2020-04-09 01:39 | NUR ---
Pt confused vss afebrile. sats 96-97% on 2lnc. Ativan given for agitation. pt was pulling off clothes ht monitor o2 etc. Bed down. Call light in reach. bed alarm on.
[2020-04-09 04:33] VITALS: BP 100/76
[2020-04-09 04:50] VITALS: BP 113/75
[2020-04-09 08:45] VITALS: BP 119/56
[2020-04-09] MEDS ORDERED: AMOX TR-K CLV1 EAC4 PO (09:15)
[2020-04-09] MEDS ORDERED: DILTIAZEM 24HR180 M1 PO (09:16)
--- NOTE | 2020-04-09 09:54 | NUR ---
WOUND CARE CONSULT; ORDER NOTED FOR WOUND CARE CONSULT,DUE TO COVID ISOLATION LIMITED ASSESSEMENT, BUT ACCORDING TO OPERATIONS TECHNICIAN KASSIE PT HAS NO WOUNDS, ALSO STATES PT TURNING SELF IN BED, MOVING OK, NO NEED FOR LOW AIR LOSS PUMP AT THIS TIME. INFORMED TO RECONSULT WOUND NURSE IF SITUATION CHANGES, VERBAL UNDERSTANDING, WILL SIGN OFF AT THIS TIME OPERATIONS TECHNICIAN AWARE
--- NOTE | 2020-04-09 10:51 | NUR ---
INITIAL ASSESSMENT/DISCHARGE NOTE: Received consult. DAYNA reviewed chart and spoke with nursing and attending physician. Pt was admitted from [facility] due to respiratory failure. Pt placed in Enhanced Isolation due to being positive for COVID-19. Pt is medically stable to discharge back to the facility today. DAYNA faxed clinical info along with discharge orders/summary to [facility] and confirmed info was received with Jasmyn in admissions, who confirmed they are able to accept pt back today. Request for 1400 transportation. DAYNA spoke with pt's sister, Bell, via phone to provide update and discuss discharge plan. Pt's sister states she had not received an update or spoken with physician today regarding discharge. SW answered Bell's questions. Bell is agreeable with discharge plan and aware of 1400 transportation time. DAYNA arranged ambulance for 1400 via [facility]. Chart copy ordered. Nursing updated and provided with number for report. No additional SW needs identified at this time, but is available to assist should needs arise.
--- NOTE | 2020-04-09 11:56 | NUR ---
PT CARE ASSUMED AT 0700, PT ALERT AND ORIENTED X1, AGITATED AND CONFUSED AT TIMES. FALL PRECAUTIONS IN PLACE. PT DENIES ANY PAIN. PT IS ON 2L OF O2 VIA NC. PT INCONTINENT, EXTERNAL CATHETER IN PLACE. WILL CONTINUE TO MONITOR.
[2020-04-09 12:27] VITALS: BP 103/55
--- NOTE | 2020-04-09 12:52 | NUR ---
1252 scanner not working, medication rights and 2 identification used to verify pt emar. 60mg DILTIAZEM HYDROCHOLRIDE, PO CRUSHED AND IVEN TO PT.
--- NOTE | 2020-04-09 14:11 | NUR ---
DR. ACEVES PAGED REGARDING PT DISCHARGE TO [facility] ABOUT OTHER CONSULTS, AND STATED PT CAN GO BACK TO [facility] TODAY.
[2020-04-09 15:30] VITALS: BP 107/55
--- NOTE | 2020-04-09 16:56 | NUR ---
EMS TRANSPORTATION HERE, PT BELONGINGS PACKED. CHART COPY AND D/C INSTRUCTION PAPERWORK GIVEN TO EMS. REPORT GIVEN TO ARELY FROM [facility].
== END 2020-04-09 17:06 | DRG 871 ==
LOC: ER 07:57 → EROBS 04-06 00:17 → 3W 04-06 00:17 → EROBS 04-06 00:17 → 3W 04-06 06:39
PROVIDERS: Emergency Medicine; ADMIT Hospitalist; ATTEND Hospitalist
DX: A41.9 Sepsis, unspecified organism (principal); U07.1 COVID-19; J96.01 Acute respiratory failure with hypoxia; J69.0 Pneumonitis due to inhalation of food and vomit; R29.6 Repeated falls; F03.90 Unspecified dementia, unspecified severity, without behavioral disturbance, psychotic disturbance, mood disturbance, and anxiety; F17.210 Nicotine dependence, cigarettes, uncomplicated; R65.20 Severe sepsis without septic shock; Z21 Asymptomatic human immunodeficiency virus [HIV] infection status; B19.20 Unspecified viral hepatitis C without hepatic coma; F10.20 Alcohol dependence, uncomplicated; R13.10 Dysphagia, unspecified; Z79.899 Other long term (current) drug therapy; Z87.01 Personal history of pneumonia (recurrent)
CPT/HCPCS: 10879

== ENCOUNTER → 2021-04-24 | Outpatient (CLI) | payer OTHER ==
[~2021-04-24] MED LIST changes: +ALENDRONATE SOD70 MG PO; +AMOX TR-K CLV1 EAC4 PO; +CLARITIN10 MG PO; +DILTIAZEM 24HR180 M1 PO; +LORAZEPAM 0.50.5 MG PO; +NEXIUM40 MG PO; +VITAMIN C500 M1 PO; +ZINC CHELATED50 MG PO; +[UNRECOGNIZED DRUG - OTHER]
== END ==
LOC: RAD 13:43
PROVIDERS: ATTEND Internal Medicine
DX: R91.8 Other nonspecific abnormal finding of lung field (principal)

== ENCOUNTER → 2021-05-22 | Outpatient (CLI) | payer OTHER | LOC: SPEECH 09:03 → RAD 09:03 | PROVIDERS: ATTEND Internal Medicine | DX: J18.9 Pneumonia, unspecified organism (principal); R13.10 Dysphagia, unspecified ==

== ENCOUNTER → 2021-09-23 | Outpatient (CLI) | payer OTHER | LOC: RAD 09:18 | PROVIDERS: ATTEND Internal Medicine | DX: R05.9 Cough, unspecified (principal) ==